=== PATIENT | female | born 1940 | race Caucasian/White ===

== ENCOUNTER 2016-12-22 15:52 | Emergency (ER) | payer MEDICARE ==
[2016-12-22 16:03] VITALS: BP 142/108; TEMP 97.4; O2SAT 99
--- NOTE | 2016-12-22 16:09 | ED.PDOC ---
History of Present Illness - General Chief Complaint: Trauma Stated Complaint: fall Time Seen by Provider: 12/22/16 16:03 Source: patient Exam Limitations: no limitations - History of Present Illness Initial Comments: Patient presents with bilateral knee pain. She was at work and fell foreward onto her knees and then her elbows. She has no elbow pain. Can ambulate but it is painful to the patellae bilaterally. No previous injuries to the areas. Patient denies taking anticoagulants. She did not hit her head, no chest pain, no LOC. She says she just lost her balance momentarily. Timing/Duration: 1-3 hours Severity: moderate Improving Factors: rest Worsening Factors: movement Associated Symptoms: denies symptoms Allergies/Adverse Reactions: Allergies NO KNOWN ALLERGY Allergy (Verified 12/22/16 16:03) Home Medications: Ambulatory Orders NK [NK] 12/22/16 Review of Systems - Review of Systems Constitutional: States: no symptoms reported EENTM: States: no symptoms reported Respiratory: States: no symptoms reported Cardiology: States: no symptoms reported Gastrointestinal/Abdominal: States: no symptoms reported Genitourinary: States: no symptoms reported Musculoskeletal: States: see HPI Skin: States: no symptoms reported Neurological: States: no symptoms reported Endocrine: States: no symptoms reported Hematologic/Lymphatic: States: no symptoms reported Past Medical History (General) - Patient Medical History Hx Cancer: Yes - breast Surgical History: other - Vaccination History Hx Tetanus, Diphtheria Vaccination: No Hx Influenza Vaccination: No Hx Pneumococcal Vaccination: No - Social History Hx Tobacco Use: No Hx Alcohol Use: No Hx Substance Use: No Hx Substance Use Treatment: No Hx Depression: No - Activities of Daily Living Hospice Agency (if applicable):: None - Female History Patient is a Female of Child Bearing Age (10 -59 yrs old): No Patient : No Family Medical History - Family History Mother Family History: Unknown Physical Exam - Physical Exam Respiratory: lungs clear Cardiovascular/Chest: regular rate, rhythm Gastrointestinal/Abdominal: normal bowel sounds, non tender, soft Extremity: other - Patella are tender with movement and mildly TTP bilaterally. They appear to be in place. AROM and PROM at the knees is normal. Progress - Progress Progress: 12/22/16 17:42 Radiographs of the left knee were negative. Radiographs of the right knee showed fluid-fluid levels indicating a possible fracture. CT was recommended. CT of right knee showed non-displaced fractures of the right patella with hemiarthrosis. Patient was placed in a knee immobilizer after the knee was SOFIE wrapped. She declined pain medications. She was provided with numbers for orthopedic surgeons that she could follow up with in three days. Departure - Departure Clinical Impression: Fracture of patella, right, closed Disposition: Discharge to Home or Self Care Condition: Good Departure Forms: ED Discharge - Pt. Copy, Patient Portal Self Enrollment Diet: resume usual diet Activity: other - use crutches until cleared by orthopedic surgeon Home Medications: Ambulatory Orders NK [NK] 12/22/16 Additional Instructions: Use the knee immobilizer until cleared by an orthopedic surgeon. Use SOFIE wrap to the knee during the day. Elevate the knee at night. Ice to the right knee three times per day and as needed. May take tylenol for pain control. Follow up with orthopedic surgeon this Wednesday for further instructions. Return to the ER for fever or increased swelling or pain of the right knee.
--- NOTE | 2016-12-22 16:23 | RAD ---
EXAM DESCRIPTION: Knee,Left 2 or More Views CLINICAL HISTORY: fall onto knees COMPARISON: None. TECHNIQUE: 3 views FINDINGS: I see no bone joint or soft tissue abnormality. IMPRESSION: Normal left knee. Electronically signed by: Adrian Hall MD 12/22/2016 4:22 PM CDT Workstation: [id number]
--- NOTE | 2016-12-22 16:29 | RAD ---
EXAM DESCRIPTION: Knee,Right 2 or More Views CLINICAL HISTORY: fall onto knees COMPARISON: None. TECHNIQUE: AP and lateral FINDINGS: A fluid fluid levels observed in the suggesting hemarthrosis. No fracture is detected. Occult injury is suspected. IMPRESSION: A fluid fluid level is observed in the knee joint suggesting a fat fluid level in the joint. This suggests an occult injury. No fracture is delineated. Further evaluation of the knee with CT might be considered. Electronically signed by: Adrian Hall MD 12/22/2016 4:28 PM CDT
--- NOTE | 2016-12-22 17:17 | CT ---
EXAM DESCRIPTION: Lower Extremity CLINICAL HISTORY: 76 years Female, right knee COMPARISON: Plain film study December 22, 2016 TECHNIQUE: This exam was performed according to our departmental dose-optimization program, which includes automated exposure control, adjustment of the mA and/or kV according to patient size and/or use of iterative reconstruction technique. Axial imaging with MPR reformatted images were obtained. FINDINGS: A nondisplaced fracture of the medial aspect of the patella fracture line oriented in the sagittal plane is evident. In addition there is a transverse fracture that is well seen only in the sagittal and coronal planes. A lipoma hemarthrosis with fluid fluid level is present within the knee. Mild degenerative changes of the medial lateral joint compartment are noted. No fracture of the medial or lateral tibial plateau or medial or lateral femoral condyle is noted. Proximal fibula is intact. No additional soft tissue injuries are noted. IMPRESSION: 1. Comminuted fracture in both the axial plane and on the sagittal plane involving the upper and medial aspect of the patella that is nondisplaced. 2. The tibia and femur and fibula are intact. 3. Lipohemarthrosis. Electronically signed by: Van Cruz MD 12/22/2016 5:15 PM CDT
== END 2016-12-22 18:19 | disposition home or self-care (01) ==
LOC: ER 15:52
DX: S82.001A Unspecified fracture of right patella, initial encounter for closed fracture (principal); Z85.3 Personal history of malignant neoplasm of breast; W19.XXXA Unspecified fall, initial encounter; Y99.0 Civilian activity done for income or pay

== ENCOUNTER → 2017-01-06 | Outpatient (CLI) | payer MEDICARE ==
--- NOTE | 2017-01-07 08:08 | RAD ---
EXAM DESCRIPTION: Knee,Right Complete CLINICAL HISTORY: 76 years, Female, PAIN IN RIGHT KNEE COMPARISON: December 22, 2016 TECHNIQUE: Two views of the right knee FINDINGS: Previously described fluid fluid level is no longer evident with slight thickening in the suprapatellar region suggesting a small bursal effusion. As previously described a discrete fracture line is not apparent but the previous suspected lipohemarthrosis is suspicious for an injury at the time of previous examination. Very slight irregularity in the contour of the articular surface of the patella posteriorly on the lateral view is unchanged and at least mildly suspicious for a nondisplaced fracture. If the patient remains symptomatic consider either CT examination of the knee or MR examination for more complete evaluation. IMPRESSION: 1. Resolution of lipohemarthrosis but persistent probable joint effusion with previous changes suspicious for an occult injury or fracture. 2. If the patient remains symptomatic, consider either MR I of the right knee or CT examination for occult fracture. Electronically signed by: Van Cruz MD 01/07/2017 8:08 AM CDT
== END | disposition home or self-care (01) ==
LOC: RAD 15:55
PROVIDERS: ATTEND Specialist
DX: M25.561 Pain in right knee (principal)

== ENCOUNTER → 2017-01-27 | Outpatient (CLI) | payer SELFPAY ==
--- NOTE | 2017-01-31 14:43 | RAD ---
EXAM DESCRIPTION: Knee,Right 2 or More Views CLINICAL HISTORY: 76 years, Female, UNSP FX OF RIGHT PATELLA COMPARISON: January 06, 2017 and December 22, 2016 TECHNIQUE: AP/lateral views of the right knee FINDINGS: Resolved joint effusion. Nondisplaced patella fracture-subacute without. No joint space narrowing observed. IMPRESSION: 1. Subacute patella fracture Electronically signed by: Chino Duffy MD 01/31/2017 2:42 PM CDT
== END | disposition home or self-care (01) ==
LOC: RAD 15:40
PROVIDERS: ATTEND Specialist
DX: S82.001A Unspecified fracture of right patella, initial encounter for closed fracture (principal)